=== PATIENT | female | born 1980 | race Caucasian/White ===

== ENCOUNTER 2018-12-07 16:43 | Emergency (ER) | payer SELFPAY ==
[~2018-12-07] VITALS: Ht 170.2 cm; Wt 59.1 kg
[2018-12-07] MEDS ORDERED: BACITRACIN 0.9 GM PACKET OINTMENT TP ONE (18:00)
[2018-12-07 18:23] VITALS: BP 148/88
== END 2018-12-07 18:24 | disposition home or self-care (01) ==
LOC: EMS 16:44
DX: S81.812A Laceration without foreign body, left lower leg, initial encounter (principal); J45.909 Unspecified asthma, uncomplicated; F17.210 Nicotine dependence, cigarettes, uncomplicated; W45.8XXA Other foreign body or object entering through skin, initial encounter; Y93.89 Activity, other specified; Y92.89 Other specified places as the place of occurrence of the external cause; Y99.8 Other external cause status